=== PATIENT | female | born 2000 | race African-American/Black ===

== ENCOUNTER 2024-05-21 16:29 | Emergency (ER) | payer SELFPAY ==
[2024-05-21 16:37] VITALS: BP 134/86; PULSE 98; RESP 18; TEMP 97.7; BMI 37.8
[2024-05-21] MEDS ORDERED: FAMOTIDINE 20 MG/50 ML IVPB 20 MG/50 ML MG IVPB ONE (18:42)
[2024-05-21] MEDS ORDERED: ONDANSETRON 4 MG/2 ML VIAL ONE (18:42)
[2024-05-21] MEDS: ONDANSETRON 4 MG/2 ML VIAL IVPUSH ONE (18:49)
[2024-05-21] MEDS: FAMOTIDINE 20 MG/50 ML IVPB 20 MG/50 ML MG IVPB ONE (18:49)
[2024-05-21] MEDS: SODIUM CHLORIDE 0.9% 500 ML INFUS.BAG IV ONE (18:49)
[2024-05-21 20:05] LABS: BASO % 0.1 % (0-2.0); EOS % 0.1 % (0-4.5); HEMATOCRIT 42.6 % (32.4-45.2); HEMOGLOBIN 14.4 GM/dL (10.7-15.3); MCHC 33.8 g/dl (32.0-36.0); MEAN CELL VOLUME 88.7 fl (80-96); MONO % 2.9 % (3.8-10.2); NEUT % 82.9 % (42.8-82.8); RBC 4.81 M/mm3 (3.60-5.2); RDW 13.2 % (11.6-15.6); WHITE BLOOD COUNT 10.1 K/mm3 (4.0-10.0)
[2024-05-21 20:09] LABS: CHLORIDE 108 mmol/L (98-107); SODIUM 139 mmol/L (136-145)
[2024-05-21 20:12] LABS: BLOOD UREA NITROGEN 8.8 mg/dL (7-18); CALCIUM 9.3 mg/dL (8.5-10.1); CO2 27 mmol/L (21-32)
[2024-05-21 20:13] LABS: GLUCOSE,RANDOM 93 mg/dL (74-106)
[2024-05-21 20:15] LABS: SGOT/AST 59 U/L (15-37); SGPT/ALT 28 U/L (13-61)
[2024-05-21 20:17] LABS: BILIRUBIN,TOTAL 0.6 mg/dL (0.2-1); TOT PROT 8.4 g/dl (6.4-8.2)
[2024-05-21 20:18] LABS: ALK PHOS 53 U/L (45-117)
[2024-05-21 20:35] LABS: MEAN PLT VOLUME 8.9 fl (7.5-11.1); PLATELET COUNT 388 10^3/uL (134-434)
[2024-05-21 20:36] LABS: ANION GAP 4 mmol/L (4-13); POTASSIUM 6.7 mmol/L (3.5-5.1)
== END 2024-05-21 21:09 | disposition left against medical advice (07) ==
LOC: JER 16:29
PROC: 3E033GC Introduction of Other Therapeutic Substance into Peripheral Vein, Percutaneous Approach (ICD-10-PCS; principal; 2024-05-21)
PROC: 3E033GC Introduction of Other Therapeutic Substance into Peripheral Vein, Percutaneous Approach (ICD-10-PCS; 2024-05-21)
DX: R11.2 Nausea with vomiting, unspecified (principal); R10.13 Epigastric pain
CPT/HCPCS: 36415; 80053; 83690; 84703; 85025; 99284-25